=== PATIENT | male | born 1960 | race Caucasian/White ===

== ENCOUNTER 2017-02-20 09:20 | Day surgery (SDC) | payer OTHER ==
[~2017-02-20] VITALS: Ht 180.3 cm; Wt 102.4 kg
[~2017-02-20 09:20] MED LIST: IBUP-1827 PO; Lactated Ringer's 1,000 ML IV SCH; glimepiride; lantus
[2017-02-20] MEDS ORDERED: fentaNYL-PF 50 mCg/mL 2 mL Inj ONE (09:21)
[2017-02-20] MEDS ORDERED: Propofol 10,000 mCg/mL 20 mL Inj ONE (09:21)
--- NOTE | 2017-02-20 09:42 | PCM.HPANE ---
Patient Data Surgeon Admitting Provider: Attending Provider:Lux Warren DO Primary Care Physician:Tae Other Provider:Gifty Irizarry Anesthesia Reason for Visit Left Thumb & Left Middle Finger Trigger Finger Ht/WT & BMI Height (Feet): 5 Height (Inches): 11 Weight (Kilograms): 102.42 Body Mass Index 31.00 Allergies Coded Allergies: No Known Allergies (Unverified , 02/12/17) Past Anesthesia History Anesthesia History: Denies:: Abnormal Airway, Anesthesia Reactions, Difficult Intubation, Fam Anesthesia Reaction Diabetes History Hx Diabetes?: Yes Type of Diabetes: Type II Glycemic Control: Insulin & Oral Medication MRSA MRSA: No Medications Hypertension Medication: No Home Meds Incl Beta Manjeet: No Reported Medications Ibuprofen 600 Mg [id number] Mg PO TID PRN For Pain Ref 0 02/12/17 [lantus] No Conflict Check35 Unit DAILY 02/12/17 [glimepiride] No Conflict Check4 Mg DAILY 02/12/17 History History of ENT Problems?: No HEENT History: Denies:: Abnormal Airway Cataracts Difficult Intubation Dysphagia Glaucoma Hearing Problem Sinus Problem TMJ Denture Type: None Teeth Condition: Broken Teeth Other HEENT Pertinent History: Chipped upper right incisor Hx of Heart Problems?: No Cardiovascular History: Denies:: AICD Abdominal Aortic Aneurism Atrial Fibrillation Edema Heart Murmur Hypertension Irregular Heartbeat Pacemaker Peripheral Vascular Hx of Respiratory Problem?: Yes Respiratory History: Positive for:: Use of C-PAP Machine Denies:: Asthma COPD Emphysema Oxygen Administration Pneumonia Tuberculosis Hx Neurologic Problems?: No Neurological History: Denies:: CVA Headaches Multiple Sclerosis Parkinson's Disease Seizures TIA Hx of GI Problems?: No Hx of Problems?: No Genitourinary History: Denies:: Kidney Stones Urinary Tract Infection Male Hx: Denies:: Prostate Problems Skin History: Denies:: History Skin Disorders? Pressure Ulcers Hx Musculoskeletal Problems?: Yes Musculoskeletal History: Positive for:: Musculoskeletal Trauma (left hand- middle finger and thumb trigger current admission problem) Osteoarthritis Denies:: Back Injury Degenerative Joint Fibromyalgia Joint Replacement Rheumatoid Arthritis Hx of Psycho/Social Problems?: No Psycho Social History: Denies:: Anxiety Hx Depression Hx Surgeries?: No Hx Any Other Health Problems?: Yes Other History: Denies:: Cancer Thyroid Disease History Blood Transfusions: Positive for:: Accept Blood Products? Denies:: Blood Transfusions Hx Diabetes: Yes Hx Alcohol Use: NoHx Substance Use: NoHave You Smoked inLast 12 mo: No Stop/Bang Treated for Sleep Apnea?: Yes Do You Have a CPAP Machine?: Yes P-Blood Pressure: treated: No B- Body Mass Index > 35 kg/m2: No A- Age over 50: Yes N- Neck Large Circumference: No G- Gender Male: Yes Risk Assessment Category Category 1A: Patient has history of documented sleep apnea, and HAS NOT received any narcotic, sedative or anesthesia administration during this stay. Category 1B: Patient has history of documented sleep apnea, and HAS received any narcotic , sedative or anesthesia administration during this stay Category 2: Patient has SUSPECTED Obstructive Sleep Apnea, and HAS received any narcotic , sedative or anesthesia administration during this stay. Category 3: Patient has SUSPECTED Obstructive Sleep Apnea and HAS NOT received narcotic, sedative or anesthesia administration during this stay. Category 4: Outpatient in Procedural Areas with known sleep apnea or who screen positive for High Risk via the STOP/BANG questionnaire. Exam Exam General Appearance: Alert, Oriented X3 HEENT/AIRWAY: MP 2 Lungs: Normal Air Movement Heart: Regular Rate/Rhythm Plan Impression Patient chart reviewed, patient interviewed and anesthestic plan with risks, benefits, and alternatives discussed, and informed consent obtained. NPO per Anesth. Guidelines: Yes ASA Physical Status: ASA2 Mod Systemic Disease Anesthetic Plan: MAC Bene/Risks/Altern/Consents: Yes HP Complete Prior to Induction: Yes Satish Jay MD Feb 20, 2017 09:42
[2017-02-20] MEDS ORDERED: Lactated Ringer's 1,000 ML IV ONE (09:49)
[2017-02-20 09:50] VITALS: BP 151/82; PULSE 94; RESP 17; O2SAT 97
[2017-02-20] MEDS ORDERED: Insulin LISPRO 300 Unit/3 mL Inj ONE (10:14)
[2017-02-20] MEDS ORDERED: Lidocaine 1%-Epi 1:100,000 20 mL Inj INFILTRATE ONE (10:52)
[2017-02-20] MEDS ORDERED: EPHEDrine Sulfate 50 mg/mL Inj IVPUSH PRN (11:05)
[2017-02-20] MEDS ORDERED: Phenylephrine 10,000 mCg/mL Inj IVPUSH PRN (11:05)
[2017-02-20] MEDS ORDERED: Lactated Ringer's 1,000 ML IV SCH (11:05)
[2017-02-20] MEDS ORDERED: fentaNYL-PF 50 mCg/mL 2 mL Inj IVPUSH PRN (11:05)
[2017-02-20] MEDS ORDERED: Lactated Ringer's 500 ML IV PRN (11:05)
[2017-02-20] MEDS ORDERED: Ondansetron 2 mg/mL 2 mL Inj IVPUSH PRN (11:05)
[2017-02-20] MEDS ORDERED: Dexamethasone 4 mg/mL Inj IVPUSH PRN (11:05)
[2017-02-20] MEDS ORDERED: HYDROmorphone 1 mg/mL Inj IVPUSH PRN (11:05)
[2017-02-20] MEDS ORDERED: MetoCLOpramide 5 mg/mL 2 mL Inj IVPUSH PRN (11:05)
[2017-02-20] MEDS ORDERED: HYDROcodone-APAP 5-325 mg Tablet PO PRN (11:20)
[2017-02-20 11:30] VITALS: BP 150/78; PULSE 88; RESP 17; O2SAT 99
[2017-02-20 12:38] VITALS: BP 148/80; PULSE 88; RESP 17; O2SAT 99
--- NOTE | 2017-02-20 17:55 | PCM.ANEP1 ---
Post Anesthesia PACU Phase 1 Assessment Vital Signs Vital Signs Date Time Temp Pulse Resp B/P Pulse Ox O2 Delivery O2 Flow Rate FiO2 02/20/17 12:38 88 17 148/80 99 Room Air 02/20/17 11:30 88 17 150/78 99 Anesthetic Administered: MAC Level of Alertness: Awake, talking Pain: No Nausea or Vomiting: No CV Function & Hydration Stable: Yes Airway Device: none Oxygen Delivery: Room Air Lungs: Normal Air Movement PACU Phase 2 Assessment Complications: No Follow up Care: N/A Patient Instructions Provided: N/A Satish Jay MD Feb 20, 2017 17:54
--- NOTE | 2017-02-21 08:28 | OP ---
[address] [address] OPERATIVE REPORT PATIENT: MICAH BETTS : 1960 MR#: [id number] ADMIT: 02/20/2017 JOB ID: [id number] DATE OF SURGERY: 02/20/2017 PREOPERATIVE DIAGNOSIS(ES): 1. Left thumb trigger. 2. Left middle finger trigger finger. POSTOPERATIVE DIAGNOSIS(ES): 1. Left thumb trigger. 2. Left middle finger trigger finger. PROCEDURE: 1. Left thumb A1 roxanna release. 2. Left middle finger A1 roxanna release. SURGEON: Lux Warren D.O. ANESTHESIA: Monitored anesthesia care with local. HISTORY: The patient is a pleasant 57-year-old male with longstanding history of left thumb middle finger catching and locking as well as associated stiffness. He failed conservative treatment for trigger fingers with steroid injection and thus I gave the patient the option to proceed with a left thumb and middle finger A1 roxanna release. He understood the risks include, but not limited to, neurovascular injury, tendon injury, infection, failure of fixation, stiffness, persistent pain, all of which may require further intervention. The patient had all questions answered. Consent was signed and placed in the chart. PROCEDURE IN DETAIL: The patient was brought to the operative suite and placed supine on the operating table. Surgical time-out performed. Everyone in the room was in agreement. After appropriate anesthesia was obtained, the left upper extremity was prepped and draped in a sterile fashion. The patient's left middle finger was approached first. An oblique incision was made directly overlying the A1 roxanna along the palmar crease. Dissection was carried down to the A1 roxanna. The digital neurovascular bundles were well protected. The A1 roxanna was identified and incised longitudinally in line with the underlying flexor tendons. The patient was able to demonstrate excellent range of motion without any catching or locking of the middle finger. After the complete release, copious irrigation was then performed followed by closure of the skin with 5-0 nylon in a simple interrupted fashion. The patient's left thumb was approached next. A transverse incision was made overlying the A1 roxanna along the volar aspect of the metacarpophalangeal crease. Care was taken to protect the radial and ulnar digital neurovascular bundles. The A1 roxanna was identified and released longitudinally in line with the underlying flexor pollicis longus. A complete release of the A1 roxanna was appreciated. The patient was asked to demonstrate range of motion of the thumb. He did demonstrate excellent range of motion of the IP joint without any catching appreciated, but he continued to demonstrate significant stiffness of the MCP joint even with passive range of motion. No further evidence of triggering of the FPL tendon was appreciated. Copious irrigation was then performed followed by closure of the skin with 5-0 nylon in a simple interrupted fashion. ESTIMATED BLOOD LOSS: Less than 1 cc. COMPLICATIONS: None. DISPOSITION: The patient tolerated the procedure well. Anesthesia was reversed and the patient was transferred back to recovery. POSTOPERATIVE PLAN: The patient will be enrolled in formal occupational therapy to work on range of motion of the left hand, specifically of the left thumb, which demonstrates already significant stiffness to the MCP joint. He is to followup in two weeks for suture removal and for further progression with therapy.
== END 2017-02-20 23:59 | disposition home or self-care (01) ==
LOC: SAS 09:20
PROVIDERS: ATTEND Orthopaedic Surgery
DX: M65.312 Trigger thumb, left thumb (principal); M65.332 Trigger finger, left middle finger; M19.042 Primary osteoarthritis, left hand; E11.9 Type 2 diabetes mellitus without complications; G47.30 Sleep apnea, unspecified; Z79.4 Long term (current) use of insulin; Z79.84 Long term (current) use of oral hypoglycemic drugs
CPT/HCPCS: 26055; J1815; J1885; J2704; J3010; J7120